=== PATIENT | male | born 1995 | race Two or more races ===

== ENCOUNTER 2016-08-25 14:21 | Inpatient (IN) | payer OTHER ==
[2016-08-25 16:51] VITALS: BMI 21.0
[2016-08-25] MEDS ORDERED: MAGNESIUM CITRATE 300 ML BOTTLE PO PRN (17:16)
[2016-08-25] MEDS ORDERED: IBUPROFEN 400 MG TABLET (FP) PO PRN (17:16)
[2016-08-25] MEDS ORDERED: MENTHOL/PHENOL 1 EACH UD MM PRN (17:16)
[2016-08-25] MEDS ORDERED: MAGNESIUM HYDROX 2400MG/30ML ORAL SUSPENSION 30 ML CUP PO PRN (17:16)
[2016-08-25] MEDS ORDERED: guaiFENesin/D-METHORPHAN HB 10 ML UNIT-DOSE CUPS PO PRN (17:16)
[2016-08-25] MEDS ORDERED: P-EPHED 60MG/TRIPROLIDI 2.5MG TABLET PO PRN (17:16)
[2016-08-25] MEDS ORDERED: MAG HYDROX/AL HYDROX/SIMETH 30 ML UNIT-DOSE CUP PO PRN (17:16)
[2016-08-25] MEDS ORDERED: LOPERAMIDE HCL 2 MG CAPSULE PO PRN (17:16)
--- NOTE | 2016-08-25 17:32 | HP ---
Admission [facility] Chief Complaint: i need to come to rehab because drug court mandated me. Allergies/Adverse Reactions: Allergies Allergy/AdvReac Type Severity Reaction Status Date / Time No Known Allergies Allergy Verified 08/25/16 17:10 History of Present Illness: 21 y/o m pt with a hx of heroin dep seeking detox. Exam Limitations: No Limitations - Ebola screening Have you traveled outside of the country in the last 21 days: No Have you had contact with anyone from an Ebola affected area: No Have you been sick,other than usual withdrawal symptoms: No Do you have a fever: No - Review of Systems Constitutional: No Symptoms Reported EENT: reports: No Symptoms Reported Respiratory: reports: No Symptoms reported Cardiac: reports: No Symptoms Reported GI: reports: No Symptoms Reported : reports: No Symptoms Reported Musculoskeletal: reports: No Symptoms Reported Integumentary: reports: No Symptoms Reported Neuro: reports: No Symptoms reported Endocrine: reports: No Symptoms Reported Hematology: reports: No Symptoms Reported Psychiatric: reports: No Sypmtoms Reported Other Systems: Reviewed and Negative Patient History - Patient Medical History Hx Anemia: No Hx Asthma: No Hx Chronic Obstructive Pulmonary Disease (COPD): No Hx Cancer: No Hx Cardiac Disorders: No Hx Congestive Heart Failure: No Hx Hypertension: No Hx Hypercholesterolemia: No Hx Pacemaker: No HX Cerebrovascular Accident: No Hx Seizures: No Hx Dementia: No Hx Diabetes: No Hx Gastrointestinal Disorders: No Hx Liver Disease: No Hx Genitourinary Disorders: No Hx Sexually Transmitted Disorders: No Hx Renal Disease (ESRD): No Hx Thyroid Disease: No Hx Human Immunodeficiency Virus (HIV): No (negative) Hx Hepatitis C: No Hx Depression: No Hx Suicide Attempt: No (denies) Hx Bipolar Disorder: No Hx Schizophrenia: No - Patient Surgical History Past Surgical History: No Hx Neurologic Surgery: No Hx Cataract Extraction: No Hx Cardiac Surgery: No Hx Lung Surgery: No Hx Breast Surgery: No Hx Breast Biopsy: No Hx Abdominal Surgery: No Hx Appendectomy: No Hx Cholecystectomy: No Hx Genitourinary Surgery: No Hx Section: No Hx Orthopedic Surgery: No Anesthesia Reaction: No - PPD History Date: 09/13/15 PPD to be Administered?: No - Reproductive History Patient is a Female of Child Bearing Age (11 -55 yrs old): No - Smoking Cessation Smoking history: Current some day smoker Have you smoked in the past 12 months: Yes Aproximately how many cigarettes per day: 7 Hx Chewing Tobacco Use: No Initiated information on smoking cessation: Yes 'Breaking Loose' booklet given: 08/25/16 - Substance & Tx. History Hx Alcohol Use: No Hx Substance Use: Yes Substance Use Type: Heroin Hx Substance Use Treatment: Yes ( [facility]) - Substances Abused Heroin Route: Injection Frequency: Daily Amount used: 5 bags/d Age of first use: 20 Date of Last Use: 08/23/16 Family Disease History - Family Disease History Family Disease History: Heart Disease: Father (stroke has pacemaker) Admission Physical Exam [facility] - Vital Signs Vital Signs: Vital Signs - 24 hr 08/25/16 16:49 Temperature 98.2 F Pulse Rate 81 Respiratory 20 Rate Blood Pressure 154/72 21 y/o m pt aox3 in nad ambulating cooperative with exam - Physical General Appearance: Yes: Appropriately Dressed, Thin HEENTM: Yes: Hearing grossly Normal, Normocephalic, Normal Voice, ASHLEY Respiratory: Yes: Chest Non-Tender, Lungs Clear, Normal Breath Sounds, No Respiratory Distress Neck: Yes: Supple Breast: Yes: Within Normal Limits Cardiology: Yes: Within Normal Limits, Regular Rhythm, Regular Rate, S1, S2 Abdominal: Yes: Normal Bowel Sounds, Non Tender, Flat Genitourinary: Yes: Within Normal Limits Back: Yes: Within Normal Limits Musculoskeletal: Yes: Within Normal Limits Extremities: Yes: Within Normal Limits Neurological: Yes: Within Normal Limits, perinatal nurse II-XII NML intact, Fully Oriented, Alert, Motor Strength 5/5, Normal Response Integumentary: Yes: Track Rosenbaum (earl forearms) Lymphatic: Yes: Within Normal Limits - Diagnostic (1) Cannabis dependence Current Visit: Yes Status: Chronic (2) Opioid dependence with withdrawal Current Visit: Yes Status: Inactive (3) Encounter for monitoring Suboxone maintenance therapy Current Visit: Yes Status: Chronic Cleared for Admission [facility] - Detox or Rehab Claeared for Rehab Admission: Yes [facility] Breath Alcohol Content Breath Alcohol Content: 0 Urine Drug Screen - Results Drug Screen Negative: No Urine Drug Screen Results: OPI-Opiates, TCA-Tricyclic Antidepress
[2016-08-25 23:35] LABS: URINE APPEARANCE TURBID; URINE BILIRUBIN NEGATIVE (NEGATIVE); URINE BLOOD NEGATIVE (NEGATIVE); URINE COLOR YELLOW; URINE GLUCOSE (UA) NEGATIVE (NEGATIVE); URINE KETONE NEGATIVE (NEGATIVE); URINE LEUK ESTERASE NEGATIVE (NEGATIVE); URINE NITRITE NEGATIVE (NEGATIVE); URINE PROTEIN NEGATIVE (NEGATIVE); URINE UROBILINOGEN NEGATIVE E.U./dl (0.2-1.0)
[2016-08-25] MEDS: BACITRACIN 0.9 GM PACKET TP SCH (23:43)
[2016-08-25] MEDS: THIAMINE HCL 100 MG TABLET (FP) PO SCH (23:43)
--- NOTE | 2016-08-25 23:50 | PN ---
[facility] Progress Note Note: received nurse informed patient is taking suboxone 4mg / 2mg nalraxone bid at home
--- NOTE | 2016-08-26 06:27 | HP ---
Psychiatrist Admission - Data Date of interview: 08/26/16 Admission source: [facility] [facility] Identifying data: This is the first [facility] admission for this 21 years old single male, unemployed with no source of income, living with his parents Medical History: Unremarkable. Smokes 7 cigarettes daily Psychiatric History: Denies history of previous psychiatric treatment Physical/Sexual Abuse/Trauma History: Denies history of emotional, physical or sexual abuse as well as DV relationship Additional Comment: Reports history of 2 previous arrests including one felony conviction. Denies being on probation/parole at present but has a drug court case Vital Signs: Vital Signs - 24 hr 08/25/16 08/26/16 08/26/16 16:49 00:30 03:30 Temperature 98.2 F Pulse Rate 81 Respiratory 20 18 18 Rate Blood Pressure 154/72 Allergies/Adverse Reactions: Allergies Allergy/AdvReac Type Severity Reaction Status Date / Time No Known Allergies Allergy Verified 08/25/16 17:10 Date of last physical exam: 08/25/16 Concur with the findings of this exam: Yes - Substance Abuse/Tx History Hx Alcohol Use: No Hx Substance Use: Yes Substance Use Type: Heroin (Started using heroin at age 20, consumes 5 bags daily. Last used on 08/23/16) Hx Substance Use Treatment: Yes ([facility]) - Admission Criteria Previous failed treatment: No Poor recovery environment: Yes Lacks judgement: Yes Mental Status Exam - Mental Status Exam Alert and Oriented to: Time, Place, Person Cognitive Function: Fair Patient Appearance: Well Groomed Mood: Hopeful, Euthymic Patient Behavior: Cooperative Speech Pattern: Clear Voice Loudness: Normal Thought Process: Intact Hallucinations: Denies Suicidal Ideation: Denies Homicidal Ideation: Denies Insight/Judgement: Fair Sleep: Well Appetite: Fair Muscle strength/Tone: Normal Gait/Station: Normal Psychiatric Findings - Problem List ([place] 1, 2,3) (1) Opioid dependence with withdrawal Current Visit: Yes Status: Inactive (2) Opioid dependence on agonist therapy Current Visit: Yes Status: Acute (3) Nicotine dependence Current Visit: Yes Status: Acute - Initial Treatment Plan Initial Treatment Plan: Monitor progress
[2016-08-26] MEDS ORDERED: BUPRENORPHINE/NALOXONE 8 MG/2 MG FILM PACKET SL SCH (10:00)
[2016-08-26] MEDS ORDERED: BUPRENORPHINE/NALOXONE 2 MG/0.5 MG FILM PACKET SL SCH (10:00)
[2016-08-26] MEDS: PRENATAL VITAMINS W/ FOLIC ACID TABLET (FP) PO SCH (10:28)
[2016-08-26] MEDS: BACITRACIN 0.9 GM PACKET TP SCH ×2 (10:29→21:02)
[2016-08-26] MEDS: BUPRENORPHINE/NALOXONE 2 MG/0.5 MG FILM PACKET SL SCH ×2 (10:29→21:02)
[2016-08-26] MEDS: NICOTINE 21 MG/24 HOURS TOPICAL PATCH TD SCH (10:29)
--- NOTE | 2016-08-26 10:33 | EKG ---
Test Reason : Blood Pressure : / mmHG Vent. Rate : 055 BPM Atrial Rate : 055 BPM P-R Int : 174 ms QRS Dur : 114 ms QT Int : 438 ms P-R-T Axes : 042 069 042 degrees QTc Int : 419 ms POOR DATA QUALITY, INTERPRETATION MAY BE ADVERSELY AFFECTED SINUS BRADYCARDIA WITH MARKED SINUS ARRHYTHMIA POSSIBLE LEFT ATRIAL ENLARGEMENT INCOMPLETE RIGHT BUNDLE BRANCH BLOCK BORDERLINE ECG NO PREVIOUS ECGS AVAILABLE Confirmed by RIGO JON, JOSE ([id number]) on 08/26/2016 10:33:51 AM Referred By: Confirmed By:JOSE SIERRA MD
[2016-08-26 10:59] LABS: MCH 27.4 pg (25.7-33.7); MCHC 33.6 g/dl (32.0-35.9); MEAN CELL VOLUME 81.7 fl (80-96); MEAN PLT VOLUME 9.2 fl (7.5-11.1); PLATELET COUNT 230 K/MM3 (134-434); RDW 12.9 % (11.9-15.9); WHITE BLOOD COUNT 6.5 K/mm3 (4.0-10.0)
[2016-08-26 11:03] LABS: ALK PHOS 133 U/L (45-117); ANION GAP 9 (8-16); BILIRUBIN,TOTAL 0.6 mg/dL (0.2-1.0); CALCIUM 8.6 mg/dL (8.5-10.1); CO2 29 mmol/L (21-32); COCKROFT - GAULT 102.45; CREATININE 1.2 mg/dL (0.7-1.3); GLUCOSE,RANDOM 114 mg/dL (74-106); SGOT/AST 16 U/L (15-37); SGPT/ALT 22 U/L (12-78); TOT PROT 7.8 g/dl (6.4-8.2)
[2016-08-26] MEDS: THIAMINE HCL 100 MG TABLET (FP) PO SCH (21:01)
[2016-08-27] MEDS: NICOTINE 21 MG/24 HOURS TOPICAL PATCH TD SCH (10:24)
[2016-08-27] MEDS: PRENATAL VITAMINS W/ FOLIC ACID TABLET (FP) PO SCH (10:24)
[2016-08-27] MEDS: BACITRACIN 0.9 GM PACKET TP SCH ×2 (10:24→22:55)
[2016-08-27] MEDS: BUPRENORPHINE/NALOXONE 2 MG/0.5 MG FILM PACKET SL SCH (10:24)
[2016-08-27] MEDS ORDERED: BUPRENORPHINE/NALOXONE 2 MG/0.5 MG FILM PACKET SL ONE (16:00)
[2016-08-27] MEDS: ACETAMINOPHEN 325 MG TABLET (FP) PO PRN (18:18)
[2016-08-27] MEDS: THIAMINE HCL 100 MG TABLET (FP) PO SCH (22:55)
[2016-08-28] MEDS ORDERED: BUPRENORPHINE/NALOXONE 2 MG/0.5 MG FILM PACKET SL SCH (06:00)
[2016-08-28] MEDS: BUPRENORPHINE/NALOXONE 8 MG/2 MG FILM PACKET SL SCH (06:13)
[2016-08-28] MEDS: PRENATAL VITAMINS W/ FOLIC ACID TABLET (FP) PO SCH (10:23)
[2016-08-28] MEDS: BACITRACIN 0.9 GM PACKET TP SCH ×2 (10:23→21:48)
[2016-08-28] MEDS: NICOTINE 21 MG/24 HOURS TOPICAL PATCH TD SCH (10:24)
[2016-08-28] MEDS: ACETAMINOPHEN 325 MG TABLET (FP) PO PRN (19:52)
[2016-08-28] MEDS: THIAMINE HCL 100 MG TABLET (FP) PO SCH (21:48)
[2016-08-28] MEDS: diphenhydrAMINE HCL 50 MG CAPSULE PO PRN (21:48)
[2016-08-29] MEDS: BUPRENORPHINE/NALOXONE 8 MG/2 MG FILM PACKET SL SCH (06:20)
[2016-08-29] MEDS: PRENATAL VITAMINS W/ FOLIC ACID TABLET (FP) PO SCH (10:22)
[2016-08-29] MEDS: BACITRACIN 0.9 GM PACKET TP SCH ×2 (10:22→23:08)
[2016-08-29] MEDS: NICOTINE 21 MG/24 HOURS TOPICAL PATCH TD SCH (12:25)
[2016-08-29] MEDS: diphenhydrAMINE HCL 50 MG CAPSULE PO PRN (21:38)
[2016-08-29] MEDS: THIAMINE HCL 100 MG TABLET (FP) PO SCH (21:38)
[2016-08-30] MEDS: BUPRENORPHINE/NALOXONE 8 MG/2 MG FILM PACKET SL SCH (06:23)
[2016-08-30] MEDS: BACITRACIN 0.9 GM PACKET TP SCH ×2 (09:57→23:26)
[2016-08-30] MEDS: PRENATAL VITAMINS W/ FOLIC ACID TABLET (FP) PO SCH (09:57)
[2016-08-30] MEDS: NICOTINE 21 MG/24 HOURS TOPICAL PATCH TD SCH (09:58)
[2016-08-30] MEDS: THIAMINE HCL 100 MG TABLET (FP) PO SCH (21:46)
[2016-08-30] MEDS: diphenhydrAMINE HCL 50 MG CAPSULE PO PRN (21:46)
[2016-08-31] MEDS: BUPRENORPHINE/NALOXONE 8 MG/2 MG FILM PACKET SL SCH (06:17)
[2016-08-31] MEDS: NICOTINE 21 MG/24 HOURS TOPICAL PATCH TD SCH (10:26)
[2016-08-31] MEDS: PRENATAL VITAMINS W/ FOLIC ACID TABLET (FP) PO SCH (10:26)
[2016-08-31] MEDS: BACITRACIN 0.9 GM PACKET TP SCH ×2 (10:26→21:40)
[2016-08-31] MEDS: THIAMINE HCL 100 MG TABLET (FP) PO SCH (21:40)
[2016-08-31] MEDS: diphenhydrAMINE HCL 50 MG CAPSULE PO PRN (21:40)
[2016-09-01] MEDS: BUPRENORPHINE/NALOXONE 8 MG/2 MG FILM PACKET SL SCH (06:20)
[2016-09-01] MEDS: BACITRACIN 0.9 GM PACKET TP SCH ×2 (10:18→23:48)
[2016-09-01] MEDS: NICOTINE 21 MG/24 HOURS TOPICAL PATCH TD SCH (10:18)
[2016-09-01] MEDS: PRENATAL VITAMINS W/ FOLIC ACID TABLET (FP) PO SCH (10:18)
[2016-09-01] MEDS: diphenhydrAMINE HCL 50 MG CAPSULE PO PRN (21:11)
[2016-09-01] MEDS: THIAMINE HCL 100 MG TABLET (FP) PO SCH (21:11)
[2016-09-02] MEDS: BUPRENORPHINE/NALOXONE 8 MG/2 MG FILM PACKET SL SCH (06:16)
[2016-09-02] MEDS: BACITRACIN 0.9 GM PACKET TP SCH ×2 (10:21→21:24)
[2016-09-02] MEDS: NICOTINE 21 MG/24 HOURS TOPICAL PATCH TD SCH (10:21)
[2016-09-02] MEDS: PRENATAL VITAMINS W/ FOLIC ACID TABLET (FP) PO SCH (10:21)
[2016-09-02] MEDS: THIAMINE HCL 100 MG TABLET (FP) PO SCH (21:23)
[2016-09-02] MEDS: diphenhydrAMINE HCL 50 MG CAPSULE PO PRN (21:23)
[2016-09-03] MEDS: BUPRENORPHINE/NALOXONE 8 MG/2 MG FILM PACKET SL SCH (06:25)
[2016-09-03] MEDS: NICOTINE 21 MG/24 HOURS TOPICAL PATCH TD SCH (10:19)
[2016-09-03] MEDS: PRENATAL VITAMINS W/ FOLIC ACID TABLET (FP) PO SCH (10:19)
[2016-09-03] MEDS: BACITRACIN 0.9 GM PACKET TP SCH ×2 (10:19→23:18)
[2016-09-03] MEDS: THIAMINE HCL 100 MG TABLET (FP) PO SCH (21:39)
[2016-09-03] MEDS: diphenhydrAMINE HCL 50 MG CAPSULE PO PRN (21:39)
[2016-09-04] MEDS: BUPRENORPHINE/NALOXONE 8 MG/2 MG FILM PACKET SL SCH (06:29)
[2016-09-04] MEDS: NICOTINE 21 MG/24 HOURS TOPICAL PATCH TD SCH (10:20)
[2016-09-04] MEDS: PRENATAL VITAMINS W/ FOLIC ACID TABLET (FP) PO SCH (10:20)
[2016-09-04] MEDS: BACITRACIN 0.9 GM PACKET TP SCH ×2 (10:56→21:15)
[2016-09-04] MEDS: diphenhydrAMINE HCL 50 MG CAPSULE PO PRN (21:14)
[2016-09-04] MEDS: THIAMINE HCL 100 MG TABLET (FP) PO SCH (21:14)
[2016-09-05] MEDS: BUPRENORPHINE/NALOXONE 8 MG/2 MG FILM PACKET SL SCH (05:54)
[2016-09-05] MEDS: NICOTINE 21 MG/24 HOURS TOPICAL PATCH TD SCH (10:21)
[2016-09-05] MEDS: PRENATAL VITAMINS W/ FOLIC ACID TABLET (FP) PO SCH (10:21)
[2016-09-05] MEDS: BACITRACIN 0.9 GM PACKET TP SCH ×2 (10:23→21:33)
[2016-09-05] MEDS: THIAMINE HCL 100 MG TABLET (FP) PO SCH (21:33)
[2016-09-05] MEDS: diphenhydrAMINE HCL 50 MG CAPSULE PO PRN (21:33)
[2016-09-06] MEDS: BUPRENORPHINE/NALOXONE 8 MG/2 MG FILM PACKET SL SCH (06:09)
[2016-09-06] MEDS: NICOTINE 21 MG/24 HOURS TOPICAL PATCH TD SCH (10:26)
[2016-09-06] MEDS: PRENATAL VITAMINS W/ FOLIC ACID TABLET (FP) PO SCH (10:26)
[2016-09-06] MEDS: BACITRACIN 0.9 GM PACKET TP SCH ×2 (10:26→21:32)
[2016-09-06] MEDS: THIAMINE HCL 100 MG TABLET (FP) PO SCH (21:32)
[2016-09-06] MEDS: diphenhydrAMINE HCL 50 MG CAPSULE PO PRN (21:32)
[2016-09-07] MEDS: BUPRENORPHINE/NALOXONE 8 MG/2 MG FILM PACKET SL SCH (07:02)
[2016-09-07] MEDS: NICOTINE POLACRILEX 4 MG GUM BC PRN (09:58)
[2016-09-07] MEDS: PRENATAL VITAMINS W/ FOLIC ACID TABLET (FP) PO SCH (09:58)
[2016-09-07] MEDS: BACITRACIN 0.9 GM PACKET TP SCH ×2 (09:58→22:10)
[2016-09-07] MEDS: NICOTINE 21 MG/24 HOURS TOPICAL PATCH TD SCH (09:58)
[2016-09-07] MEDS: diphenhydrAMINE HCL 50 MG CAPSULE PO PRN (22:10)
[2016-09-07] MEDS: THIAMINE HCL 100 MG TABLET (FP) PO SCH (22:10)
[2016-09-08] MEDS: BUPRENORPHINE/NALOXONE 8 MG/2 MG FILM PACKET SL SCH (06:28)
[2016-09-08] MEDS: BACITRACIN 0.9 GM PACKET TP SCH ×2 (10:30→23:25)
[2016-09-08] MEDS: PRENATAL VITAMINS W/ FOLIC ACID TABLET (FP) PO SCH (10:30)
[2016-09-08] MEDS: NICOTINE 21 MG/24 HOURS TOPICAL PATCH TD SCH (10:30)
[2016-09-08] MEDS: THIAMINE HCL 100 MG TABLET (FP) PO SCH (21:50)
[2016-09-08] MEDS: diphenhydrAMINE HCL 50 MG CAPSULE PO PRN (21:50)
[2016-09-09] MEDS: BUPRENORPHINE/NALOXONE 8 MG/2 MG FILM PACKET SL SCH (06:23)
[2016-09-09] MEDS: NICOTINE 21 MG/24 HOURS TOPICAL PATCH TD SCH (10:02)
[2016-09-09] MEDS: NICOTINE POLACRILEX 4 MG GUM BC PRN (10:02)
[2016-09-09] MEDS: BACITRACIN 0.9 GM PACKET TP SCH ×2 (10:02→23:24)
[2016-09-09] MEDS: PRENATAL VITAMINS W/ FOLIC ACID TABLET (FP) PO SCH (10:02)
[2016-09-09] MEDS: THIAMINE HCL 100 MG TABLET (FP) PO SCH (21:34)
[2016-09-09] MEDS: diphenhydrAMINE HCL 50 MG CAPSULE PO PRN (21:34)
[2016-09-10] MEDS: BUPRENORPHINE/NALOXONE 8 MG/2 MG FILM PACKET SL SCH (06:34)
[2016-09-10] MEDS: PRENATAL VITAMINS W/ FOLIC ACID TABLET (FP) PO SCH (10:06)
[2016-09-10] MEDS: BACITRACIN 0.9 GM PACKET TP SCH ×2 (10:06→22:55)
[2016-09-10] MEDS: NICOTINE 21 MG/24 HOURS TOPICAL PATCH TD SCH (10:06)
[2016-09-10] MEDS: NICOTINE POLACRILEX 4 MG GUM BC PRN (10:07)
[2016-09-10] MEDS: diphenhydrAMINE HCL 50 MG CAPSULE PO PRN (21:56)
[2016-09-10] MEDS: THIAMINE HCL 100 MG TABLET (FP) PO SCH (21:56)
[2016-09-11] MEDS: BUPRENORPHINE/NALOXONE 8 MG/2 MG FILM PACKET SL SCH (06:27)
[2016-09-11] MEDS: PRENATAL VITAMINS W/ FOLIC ACID TABLET (FP) PO SCH (10:21)
[2016-09-11] MEDS: BACITRACIN 0.9 GM PACKET TP SCH ×2 (10:21→21:51)
[2016-09-11] MEDS: NICOTINE 21 MG/24 HOURS TOPICAL PATCH TD SCH (10:22)
[2016-09-11] MEDS: NICOTINE POLACRILEX 4 MG GUM BC PRN (10:23)
[2016-09-11] MEDS: diphenhydrAMINE HCL 50 MG CAPSULE PO PRN (21:51)
[2016-09-11] MEDS: THIAMINE HCL 100 MG TABLET (FP) PO SCH (21:51)
[2016-09-12] MEDS: BUPRENORPHINE/NALOXONE 8 MG/2 MG FILM PACKET SL SCH (06:58)
[2016-09-12] MEDS: NICOTINE 21 MG/24 HOURS TOPICAL PATCH TD SCH (10:31)
[2016-09-12] MEDS: BACITRACIN 0.9 GM PACKET TP SCH ×2 (10:31→22:42)
[2016-09-12] MEDS: PRENATAL VITAMINS W/ FOLIC ACID TABLET (FP) PO SCH (10:31)
[2016-09-12] MEDS: THIAMINE HCL 100 MG TABLET (FP) PO SCH (21:50)
[2016-09-12] MEDS: diphenhydrAMINE HCL 50 MG CAPSULE PO PRN (21:50)
[2016-09-13] MEDS: BUPRENORPHINE/NALOXONE 8 MG/2 MG FILM PACKET SL SCH (06:40)
[2016-09-13] MEDS: PRENATAL VITAMINS W/ FOLIC ACID TABLET (FP) PO SCH (10:09)
[2016-09-13] MEDS: NICOTINE POLACRILEX 4 MG GUM BC PRN (10:09)
[2016-09-13] MEDS: NICOTINE 21 MG/24 HOURS TOPICAL PATCH TD SCH (10:09)
[2016-09-13] MEDS: BACITRACIN 0.9 GM PACKET TP SCH ×2 (10:09→23:06)
[2016-09-13] MEDS: diphenhydrAMINE HCL 50 MG CAPSULE PO PRN (21:52)
[2016-09-13] MEDS: THIAMINE HCL 100 MG TABLET (FP) PO SCH (21:52)
[2016-09-14] MEDS: BUPRENORPHINE/NALOXONE 8 MG/2 MG FILM PACKET SL SCH (06:22)
[2016-09-14] MEDS: NICOTINE 21 MG/24 HOURS TOPICAL PATCH TD SCH (10:25)
[2016-09-14] MEDS: BACITRACIN 0.9 GM PACKET TP SCH ×2 (10:25→22:25)
[2016-09-14] MEDS: PRENATAL VITAMINS W/ FOLIC ACID TABLET (FP) PO SCH (10:25)
[2016-09-14] MEDS: NICOTINE POLACRILEX 4 MG GUM BC PRN (10:26)
[2016-09-14] MEDS: diphenhydrAMINE HCL 50 MG CAPSULE PO PRN (21:46)
[2016-09-14] MEDS: THIAMINE HCL 100 MG TABLET (FP) PO SCH (21:46)
[2016-09-15] MEDS: BUPRENORPHINE/NALOXONE 8 MG/2 MG FILM PACKET SL SCH (06:32)
[2016-09-15] MEDS: BACITRACIN 0.9 GM PACKET TP SCH ×2 (10:41→23:49)
[2016-09-15] MEDS: NICOTINE 21 MG/24 HOURS TOPICAL PATCH TD SCH (10:41)
[2016-09-15] MEDS: PRENATAL VITAMINS W/ FOLIC ACID TABLET (FP) PO SCH (10:41)
[2016-09-15] MEDS: NICOTINE POLACRILEX 4 MG GUM BC PRN (10:43)
[2016-09-15] MEDS: THIAMINE HCL 100 MG TABLET (FP) PO SCH (22:02)
[2016-09-15] MEDS: diphenhydrAMINE HCL 50 MG CAPSULE PO PRN (22:03)
[2016-09-16] MEDS: BUPRENORPHINE/NALOXONE 8 MG/2 MG FILM PACKET SL SCH (06:39)
[2016-09-16] MEDS: NICOTINE POLACRILEX 4 MG GUM BC PRN (10:11)
[2016-09-16] MEDS: BACITRACIN 0.9 GM PACKET TP SCH ×2 (10:11→22:01)
[2016-09-16] MEDS: PRENATAL VITAMINS W/ FOLIC ACID TABLET (FP) PO SCH (10:11)
[2016-09-16] MEDS: NICOTINE 21 MG/24 HOURS TOPICAL PATCH TD SCH (10:11)
[2016-09-16] MEDS: THIAMINE HCL 100 MG TABLET (FP) PO SCH (22:01)
[2016-09-16] MEDS: diphenhydrAMINE HCL 50 MG CAPSULE PO PRN (22:01)
[2016-09-17] MEDS: BUPRENORPHINE/NALOXONE 8 MG/2 MG FILM PACKET SL SCH (06:40)
[2016-09-17 06:55] VITALS: BP 131/69; PULSE 66; TEMP 98.1
--- NOTE | 2016-09-17 08:30 | PN ---
Psychiatric Progress Note Vital Signs: Vital Signs Period Temp Pulse Resp BP Sys/Reza Pulse Ox Last 24 Hr 98.1 F 66 16-18 131/69 Date of Session: 09/17/16 Chief Complaint:: Discharge Note HPI: Patient addressing Opoid dependence comorbid with Nicotine Dependence Current Medications: Active Medications Generic Name Dose Route Start Last Admin Trade Name Freq PRN Reason Stop Dose Admin Acetaminophen 650 mg 08/25/16 17:16 08/28/16 19:52 Tylenol - PO 650 mg Q4H PRN Administration PAIN Al Hydroxide/Mg Hydroxide 30 ml 08/25/16 17:16 Mylanta Oral Suspension - PO Q6H PRN DYSPEPSIA Bacitracin 0.9 gm 08/25/16 22:00 09/16/16 22:01 Bacitracin - TP 0.9 gm BID GINI Administration Buprenorphine/Naloxone 1 each 09/15/16 06:00 09/17/16 06:40 Suboxone 8mg/2mg Sl Film - SL 09/21/16 05:59 1 each DAILY@0600 GINI Administration Diphenhydramine HCl 50 mg 08/25/16 17:16 09/16/16 22:01 Benadryl - PO 50 mg HSMR1 PRN Administration INSOMNIA Eucalyptus/Menthol/Phenol/Sorbitol 1 each 08/25/16 17:16 Cepastat Lozenge - MM Q4H PRN SORE THROAT Guaifenesin 10 ml 08/25/16 17:16 Robitussin Dm - PO Q6H PRN COUGH Ibuprofen 400 mg 08/25/16 17:16 Motrin - PO Q6H PRN SEVERE PAIN Loperamide HCl 4 mg 08/25/16 17:16 Imodium - PO Q6H PRN DIARRHEA Magnesium Citrate 300 ml 08/25/16 17:16 Citroma - PO Q48H PRN CONSTIPATION Magnesium Hydroxide 30 ml 08/25/16 17:16 Milk Of Magnesia - PO DAILY PRN CONSTIPATION Nicotine 21 mg 08/26/16 10:00 09/16/16 10:11 Nicoderm Patch - TD 21 mg DAILY GINI Administration Nicotine Polacrilex 4 mg 08/25/16 17:16 09/16/16 10:11 Nicorette Gum - BC 4 mg Q2H PRN Administration NICOTINE REPLACEMENT RX Multivit/Folic Acid/Iron 1 tab 08/26/16 10:00 09/16/16 10:11 Vitamins ([facility]) - PO 1 tab DAILY GINI Administration Pseudoephedrine/Triprolidine 1 combo 08/25/16 17:16 Actifed - PO TID PRN NASAL CONGESTION Thiamine HCl 100 mg 08/25/16 22:00 09/16/16 22:01 Vitamin B1 - PO 100 mg HS GINI Administration Current Side Effect: No Lab tests ordered: Yes Lab tests reviewed: Yes Provider note:: Patient has completed this program today. He has met his treatmenr goals and will continue to address his issues in outpatient treatment at [facility]. He verbalized understanding of the negative consequences of his addiction and recognizing the need to make changes in his life style in order to maintain sobriety.He is stable for discharge today Total face to face time:: 35 Mental Status Exam - Mental Status Exam Alert and Oriented to: Time, Place, Person Cognitive Function: Fair Mood: Hopeful, Euthymic Affect: Appropriate Patient Behavior: Cooperative Speech Pattern: Clear Voice Loudness: Normal Thought Process: Intact Thought Disorder: Not Present Hallucinations: Denies Suicidal Ideation: Denies Homicidal Ideation: Denies Insight/Judgement: Fair Sleep: Fair Appetite: Good Muscle strength/Tone: Normal Gait/Station: Normal Psychiatric Treatment Plan - Problem List (1) Opioid dependence with withdrawal Current Visit: Yes (2) Opioid dependence on agonist therapy Current Visit: Yes (3) Nicotine dependence Current Visit: Yes Initial treatment plan: Patient is discharged today and referred to [facility] for outpatient treatment
[2016-09-17] MEDS: NICOTINE POLACRILEX 4 MG GUM BC PRN (10:02)
[2016-09-17] MEDS: PRENATAL VITAMINS W/ FOLIC ACID TABLET (FP) PO SCH (10:02)
[2016-09-17] MEDS: BACITRACIN 0.9 GM PACKET TP SCH (10:25)
[2016-09-17] MEDS: NICOTINE 21 MG/24 HOURS TOPICAL PATCH TD SCH (10:25)
== END 2016-09-17 10:08 | disposition home or self-care (01) | DRG 772 ==
LOC: YASAS 14:21 → Y3W 17:29
PROVIDERS: ADMIT Psychiatry & Neurology Psychiatry; ATTEND Psychiatry & Neurology Psychiatry
PROC: HZ42ZZZ Group Counseling for Substance Abuse Treatment, Cognitive-Behavioral (ICD-10-PCS; principal; 2016-08-25)
DX: F11.20 Opioid dependence, uncomplicated (principal); F17.210 Nicotine dependence, cigarettes, uncomplicated
CPT/HCPCS: 36415; 80053; 81003; 85027; 86593; 93005; 93010